=== PATIENT | female | born 1985 | race Caucasian/White ===

== ENCOUNTER 2016-10-13 11:38 | Observation (INO) | payer OTHER ==
[2016-10-13 11:40] VITALS: BMI 29.4
[2016-10-13] MEDS ORDERED: Sodium Chloride 0.9% 1,000 ML IV STA (12:05)
--- NOTE | 2016-10-13 12:16 | ED PDOC ---
Arrival/HPI - General Chief Complaint: Abdominal Pain Time Seen by Provider: 10/13/16 11:50 Historian: Patient, Corporate Planner (Lora Richardson) - History of Present Illness Narrative History of Present Illness (Text): 10/13/16 12:00 Brigitte Easton is a 31 year old patient, who presents to the Emergency department complaining of right lower quadrant abdominal pain that began two days ago. Patient notes feeling nauseated, having chills and dysuria since her abdominal pain began. She states that her last menstrual period was on . Patient denies chest pain, shortness of breath, headache, fever, cough, vomiting, diarrhea, changes in bowel habits, hematuria, frequency, flank pain, or other complaints. PMD: None Time/Duration: Other (2 days ago) Symptom Onset: Sudden Symptom Course: Unchanged Modifying Factors (Text): None Context: Home Associated Symptoms (Text): nausea, chills, and dysuria Past Medical History - Provider Review Nursing Documentation Reviewed: Yes - Infectious Disease Hx of Infectious Diseases: None - Past Medical History Past Medical History: No Previous - Musculoskeletal/Rheumatological Hx Falls: No - Psychiatric Hx Depression: No Hx Emotional Abuse: No Hx Physical Abuse: No Hx Substance Use: No - Surgical History Hx Section: Yes (3) Hx Tubal Ligation: Yes - Anesthesia Hx Anesthesia Reactions: No Hx Malignant Hyperthermia: No - Suicidal Assessment Feels Threatened In Home Enviroment: No Family/Social History - Physician Review Nursing Documentation Reviewed: Yes Family/Social History: Unknown Family HX Smoking Status: Never Smoked Hx Alcohol Use: No Hx Substance Use: No Hx Substance Use Treatment: No Allergies/Home Meds Allergies/Adverse Reactions: Allergies No Known Allergies Allergy (Verified 10/13/16 13:33) Review of Systems - Review of Systems Constitutional: Normal. absent: Fevers Eyes: Normal. absent: Vision Changes ENT: Normal Respiratory: Normal. absent: SOB, Cough Cardiovascular: Normal. absent: Chest Pain Gastrointestinal: Abdominal Pain (RLQ), Nausea. absent: Diarrhea Genitourinary Female: Dysuria. absent: Frequency Musculoskeletal: absent: Back Pain Skin: Normal Neurological: Normal Endocrine: Normal Hemo/Lymphatic: Normal Psychiatric: Normal Physical Exam Vital Signs Reviewed: Yes Vital Signs Temp Pulse Resp BP Pulse Ox 10/13/16 14:00 66 18 103/69 97 10/13/16 12:47 68 18 101/67 97 10/13/16 12:26 98.6 F 10/13/16 11:38 98.8 F 75 16 99/64 L 97 Temperature: Afebrile Blood Pressure: Hypotensive Pulse: Regular Respiratory Rate: Normal Appearance: Positive for: Well-Appearing, Non-Toxic, Comfortable Pain Distress: None Mental Status: Positive for: Alert and Oriented X 3 - Systems Exam Head: Present: Atraumatic, Normocephalic Pupils: Present: PERRL Conjunctiva: Present: Normal Mouth: Present: Moist Mucous Membranes Pharnyx: Present: Normal. No: ERYTHEMA, EXUDATE Neck: Present: Normal Range of Motion Respiratory/Chest: Present: Clear to Auscultation, Good Air Exchange. No: Respiratory Distress, Accessory Muscle Use Cardiovascular: Present: Regular Rate and Rhythm, Normal S1, S2. No: Murmurs Abdomen: Present: Tenderness (tender on palpation on RLQ), Normal Bowel Sounds. No: Distention, Peritoneal Signs Upper Extremity: Present: Normal Inspection. No: Cyanosis, Edema Lower Extremity: Present: Normal Inspection. No: Edema Neurological: Present: GCS=15, CN II-XII Intact, Speech Normal Skin: Present: Warm, Dry, Normal Color. No: Rashes Psychiatric: Present: Alert, Oriented x 3, Normal Insight, Normal Concentration Medical Decision Making ED Course and Treatment: 10/13/16 12:00 Impression: 31 year old female with RLQ abdominal pain. Differential Diagnosis included but are not limited to: appendicitis vs. ovarian cyst vs. UTI Plan: -- CAT scan abdomen and pelvis with IV contrast -- Urinalysis -- Labs -- Pepcid, Zofran, Sodiun Chloride -- Reassess and disposition - Lab Interpretations Lab Results: Lab Results 10/13/16 11:47: Urine HCG, Qual Negative 10/13/16 11:47: Urine Color Light yellow, Urine Appearance Clear, Urine pH 6.5, Ur Specific [place] <= 1.005, Urine Protein Negative, Urine Glucose (UA) Negative, Urine Ketones Negative, Urine Blood Negative, Urine Nitrate Negative, Urine Bilirubin Negative, Urine Urobilinogen 0.2, Ur Leukocyte Esterase Negative I have reviewed the lab results: Yes - Medication Orders Current Medication Orders: Discontinued Medications Famotidine (Pepcid) 20 mg IVP STAT STA Stop: 10/13/16 12:05 Last Admin: 10/13/16 12:49 Dose: 20 mg Sodium Chloride (Sodium Chloride 0.9%) 1,000 mls @ 999 mls/hr IV .Q1H1M STA Stop: 10/13/16 13:05 Last Admin: 10/13/16 12:49 Dose: 999 mls/hr Iohexol (Omnipaque 240 (50 Ml)) Confirm Administered Dose 50 ml .ROUTE .STK-MED ONE Stop: 10/13/16 12:19 Ketorolac Tromethamine (Toradol) 30 mg IVP STAT STA Stop: 10/13/16 14:10 Last Admin: 10/13/16 14:58 Dose: 30 mg Ondansetron HCl (Zofran Inj) 4 mg IVP STAT STA Stop: 10/13/16 12:05 Last Admin: 10/13/16 12:49 Dose: 4 mg ED OBSERVATION Discharge: Yes Date of observation admission: 10/13/16 Time of observation admission: 12:00 - Observation admission statement Patient is being placed in observation because:: Patient is being observed for right lower quadrant abdominal pain that began 2 days ago. - Goals of Observation Goals of observation are:: Patient will be monitored to treat symptoms. - Progress Note Progress Note: 10/13/16 12:00 Patient with RLQ pain will obtain CAT scan abdomen and pelvis with IV contrast, Urinalysis, Labs, and Pepcid, Zofran, Sodiun Chloride 10/13/16 Patient reports pain is unchanged. Patient will be given Toradol. 10/13/16 15:15 CT Abdomen and Pelvis with contrast: Creator : Richard Marvin MD FINDINGS: LOWER THORAX: Unremarkable. LIVER: Unremarkable. No gross lesion or ductal dilatation. GALLBLADDER AND BILE DUCTS: Unremarkable. PANCREAS: Unremarkable. No gross lesion or ductal dilatation. SPLEEN: Unremarkable. ADRENALS: Unremarkable. No mass. KIDNEYS AND URETERS: Unremarkable. No hydronephrosis. No solid mass. VASCULATURE: Unremarkable. No aortic aneurysm. BOWEL: Unremarkable. No obstruction. No gross mural thickening. APPENDIX: Normal appendix. PERITONEUM: Unremarkable. No free fluid. No free air. LYMPH NODES: Unremarkable. No enlarged lymph nodes. BLADDER: Unremarkable. REPRODUCTIVE: There is a thick-walled rim enhancing right ovarian cyst consistent with a recent cyst rupture. Coronal image 52. There is fluid in the endometrial canal BONES: No acute fracture. OTHER FINDINGS: None. IMPRESSION: Normal appendix. Thick-walled rim enhancing right ovarian cyst consistent with recent cyst rupture. There is no fluid in the cul-de-sac. 10/13/16 16:00 On re-evaluation, patient feels better and is in no acute distress. I have discussed the results and plan with the patient, who expresses understanding. Patient in agreement with plan to be discharged home. Patient is stable for discharge. Patient was instructed to follow up with physician or return if symptoms worsen or new concerning symptoms arise. - Scribe Statement The provider has reviewed the documentation as recorded by the Scribe 10/13/2016 Lora Richardson Provider Scribe Attestation: All medical record entries made by the Scribe were at my direction and personally dictated by me. I have reviewed the chart and agree that the record accurately reflects my personal performance of the history, physical exam, medical decision making, and the department course for this patient. I have also personally directed, reviewed, and agree with the discharge instructions and disposition. Disposition/Present on Arrival - Present on Arrival Any Indicators Present on Arrival: No History of DVT/PE: No History of Uncontrolled Diabetes: No Urinary Catheter: No History of Decub. Ulcer: No History Surgical Site Infection Following: None - Disposition Have Diagnosis and Disposition been Completed?: Yes Diagnosis: Ruptured ovarian cyst Disposition Time: 12:00 Patient Plan: Discharge Condition: GOOD
[2016-10-13] MEDS ORDERED: Iohexol 240 (50 ml) ONE (12:18)
[2016-10-13 12:26] VITALS: TEMP 98.6
[2016-10-13 12:33] LABS: PH,URINE 6.5 (4.7-8.0); URINE BILIRUBIN NEGATIVE (NEGATIVE); URINE BLOOD NEGATIVE (NEGATIVE); URINE GLUCOSE (UA) NEGATIVE (NEGATIVE); URINE LEUKOCYTE ESTERASE NEGATIVE Leu/uL (NEGATIVE); URINE NITRATE NEGATIVE (NEGATIVE); URINE PROTEIN NEGATIVE mg/dL (<30 mg/dL); URINE UROBILINOGEN 0.2 E.U./dL (<1 E.U./dL)
[2016-10-13 12:34] LABS: URINE APPEARANCE CLEAR (CLEAR); URINE COLOR LIGHT YELLOW (YELLOW)
[2016-10-13 12:40] LABS: BASO # 0.02 K/mm3 (0.0-2.0); BASO % 0.3 % (0.0-3.0); EOS # 0.1 (0.0-0.7); EOS % 1.8 % (1.5-5.0); GRAN # 4.59 (1.4-6.5); GRAN % 63.2 % (50.0-68.0); HEMOGLOBIN 11.6 gm/dL (12.0-16.0); LYMPH # 2.1 (1.2-3.4); LYMPH % 28.8 % (22.0-35.0); MEAN CELL VOLUME 83.1 fL (80.0-105.0); MEAN CORPUSCULAR HEMOGLOBIN 26.9 pg (25.0-35.0); MEAN CORPUSCULAR HGB CONC 32.4 g/dl (31.0-37.0); MEAN PLATELET VOLUME 10.7 fl (7.0-11.0); MONO # 0.4 (0.1-0.6); MONO % 5.9 % (1.0-6.0); PLATELET COUNT 227 10^3/uL (120.0-450.0); RBC 4.31 10^6/uL (3.5-6.1); WHITE BLOOD COUNT 7.3 10^3/ul (4.5-11.0)
[2016-10-13 12:48] VITALS: RESP 18
[2016-10-13 12:50] LABS: INR 1.06 (0.93-1.08); PARTIAL THROMBOPLASTIN TIME 29.6 Seconds (23.7-30.8); PROTHROMBIN TIME 11.4 Seconds (9.9-11.8)
[2016-10-13 12:52] LABS: ALB/GLOB RATIO 1.2 (1.1-1.8); ALBUMIN 4.1 g/dL (3.0-4.8); ALT/SGPT 23 U/L (7-56); AMYLASE 87 U/L (35-125); AST/SGOT 22 U/L (15-39); BLOOD UREA NITROGEN 13 mg/dL (7-21); CALCIUM 8.8 mg/dL (8.4-10.5); GFR AFRICAN-AMERICAN > 60; GFR NON-AFRICAN AMERICAN > 60; LIPASE 99 U/L (23-300)
[2016-10-13] MEDS ORDERED: Iohexol 350 MG/100 ML VIAL ONE (14:08)
--- NOTE | 2016-10-13 15:11 | CT ---
PROCEDURE: CT Abdomen and Pelvis with contrast HISTORY: RLQ pain - r/o appendicitis COMPARISON: None. TECHNIQUE: Contrast dose: 100 cc of Omni 350 Radiation dose: Total exam DLP = 504 mGy-cm. This CT exam was performed using one or more of the following dose reduction techniques: Automated exposure control, adjustment of the mA and/or kV according to patient size, and/or use of iterative reconstruction technique. FINDINGS: LOWER THORAX: Unremarkable. LIVER: Unremarkable. No gross lesion or ductal dilatation. GALLBLADDER AND BILE DUCTS: Unremarkable. PANCREAS: Unremarkable. No gross lesion or ductal dilatation. SPLEEN: Unremarkable. ADRENALS: Unremarkable. No mass. KIDNEYS AND URETERS: Unremarkable. No hydronephrosis. No solid mass. VASCULATURE: Unremarkable. No aortic aneurysm. BOWEL: Unremarkable. No obstruction. No gross mural thickening. APPENDIX: Normal appendix. PERITONEUM: Unremarkable. No free fluid. No free air. LYMPH NODES: Unremarkable. No enlarged lymph nodes. BLADDER: Unremarkable. REPRODUCTIVE: There is a thick-walled rim enhancing right ovarian cyst consistent with a recent cyst rupture. Coronal image 52. There is fluid in the endometrial canal BONES: No acute fracture. OTHER FINDINGS: None. IMPRESSION: Normal appendix. Thick-walled rim enhancing right ovarian cyst consistent with recent cyst rupture. There is no fluid in the cul-de-sac.
[2016-10-13 16:07] VITALS: BP 105/71; PULSE 65
[2016-10-13 16:41] VITALS: O2SAT 100
== END 2016-10-13 15:47 | disposition home or self-care (01) ==
LOC: ED 11:38 → EROBSV 12:00
PROVIDERS: ADMIT Emergency Medicine; ATTEND Emergency Medicine
DX: N83.201 Unspecified ovarian cyst, right side (principal)
CPT/HCPCS: 74177; 80053; 81003; 82150; 83690; 84703; 85025; 85610; 85730; 96374; 96375; 99284; G0378; J1885; J2405; J7040; Q9966; Q9967

== ENCOUNTER 2018-02-23 12:14 | Emergency (ER) | payer OTHER ==
[2018-02-23 12:21] VITALS: BMI 28.9
[2018-02-23 12:25] VITALS: RESP 18
[2018-02-23] MEDS ORDERED: Sodium Chloride 0.9% 1,000 ML IV STA (13:16)
[2018-02-23 13:42] LABS: BASO # 0.03 K/mm3 (0.0-2.0); BASO % 0.3 % (0.0-3.0); GRAN # 7.34 (1.4-6.5); GRAN % 77.4 % (50.0-68.0); HEMOGLOBIN 13.1 g/dL (12.0-16.0); LYMPH # 1.3 (1.2-3.4); LYMPH % 13.2 % (22.0-35.0); MEAN CELL VOLUME 82.3 fl (80.0-105.0); MEAN CORPUSCULAR HEMOGLOBIN 27.6 pg (25.0-35.0); MEAN CORPUSCULAR HGB CONC 33.6 g/dl (31.0-37.0); MEAN PLATELET VOLUME 11.1 fl (7.0-11.0); MONO # 0.9 (0.1-0.6); MONO % 9.1 % (1.0-6.0); RBC 4.74 10^6/uL (3.5-6.1); RED CELL DISTRIBUTION WIDTH 13.9 % (11.5-14.5); WHITE BLOOD COUNT 9.5 10^3/uL (4.5-11.0)
[2018-02-23 13:49] LABS: URINE APPEARANCE CLOUDY (CLEAR); URINE BILIRUBIN NEGATIVE (NEGATIVE); URINE BLOOD MODERATE (NEGATIVE); URINE COLOR YELLOW (YELLOW); URINE GLUCOSE (UA) NEGATIVE (NEGATIVE); URINE LEUKOCYTE ESTERASE LARGE Leu/uL (NEGATIVE); URINE PROTEIN NEGATIVE mg/dL (<30 mg/dL); URINE UROBILINOGEN 0.2 E.U./dL (<1 E.U./dL)
[2018-02-23 14:00] LABS: URINE WBC TNTC /hpf (0-6)
[2018-02-23 14:01] LABS: URINE BACTERIA MOD (NEG)
[2018-02-23 14:06] LABS: ALB/GLOB RATIO 1.2 (1.1-1.8); ALBUMIN 4.3 g/dL (3.0-4.8); ALT/SGPT 29 U/L (7-56); AMYLASE 68 U/L (35-125); AST/SGOT 25 U/L (14-36); BLOOD UREA NITROGEN 13 mg/dL (7-21); CALCIUM 8.7 mg/dL (8.4-10.5); GFR NON-AFRICAN AMERICAN > 60; LIPASE 78 U/L (23-300)
[2018-02-23] MEDS ORDERED: Iohexol 350 MG/100 ML VIAL ONE (15:10)
--- NOTE | 2018-02-23 16:20 | ED PDOC ---
Arrival/HPI - General Chief Complaint: Abdominal Pain Time Seen by Provider: 02/23/18 12:17 Historian: Patient - History of Present Illness Narrative History of Present Illness (Text): 02/23/18 16:15 32yr old female presents today with 1 week history of right sided abdominal pain. pt c/o nausea, no vomiting/diarrhea. pt c/o urinary frequency. no cp or sob. pt states pain is worse with eating. pt states she has occasional back pain. no dizziness or weakness. no medications taken at home. no vaginal bleeding or discharge. no other complaints. Time/Duration: 1 week Symptom Onset: Gradual Symptom Course: Unchanged Quality: Aching Severity Level: Mild Past Medical History - Provider Review Nursing Documentation Reviewed: Yes - Travel History Have you recently traveled outside [place] w/in the past 3 mons?: No - Infectious Disease Hx of Infectious Diseases: None - Past Medical History Past Medical History: No Previous - Musculoskeletal/Rheumatological Hx Falls: No - Psychiatric Hx Depression: No Hx Emotional Abuse: No Hx Physical Abuse: No Hx Substance Use: No - Surgical History Hx Section: Yes (3) Hx Tubal Ligation: Yes - Anesthesia Hx Anesthesia: Yes Hx Anesthesia Reactions: No Hx Malignant Hyperthermia: No - Suicidal Assessment Feels Threatened In Home Enviroment: No Family/Social History - Physician Review Nursing Documentation Reviewed: Yes Family/Social History: Unknown Family HX Smoking Status: Never Smoked Hx Alcohol Use: No Hx Substance Use: No Hx Substance Use Treatment: No Allergies/Home Meds Allergies/Adverse Reactions: Allergies No Known Allergies Allergy (Verified 10/13/16 13:33) Review of Systems - Review of Systems Constitutional: absent: Fatigue Respiratory: absent: SOB, Cough Cardiovascular: Syncope. absent: Chest Pain, Palpitations Gastrointestinal: Nausea. absent: Constipation, Diarrhea, Vomiting Genitourinary Female: Dysuria, Frequency. absent: Hematuria Musculoskeletal: Back Pain. absent: Arthralgias, Neck Pain Skin: absent: Rash Neurological: Headache. absent: Dizziness Psychiatric: absent: Anxiety, Depression Physical Exam Vital Signs Reviewed: Yes Vital Signs Temp Pulse Resp BP Pulse Ox 02/23/18 16:00 86 18 111/70 98 02/23/18 14:24 94 H 18 113/74 98 02/23/18 12:24 99.7 F H 100 H 18 111/70 98 Temperature: Afebrile Blood Pressure: Normal Pulse: Tachycardic Respiratory Rate: Normal Appearance: Positive for: Well-Appearing, Non-Toxic, Comfortable Pain Distress: None Mental Status: Positive for: Alert and Oriented X 3 - Systems Exam Head: Present: Atraumatic Mouth: Present: Moist Mucous Membranes Neck: Present: Normal Range of Motion Respiratory/Chest: Present: Clear to Auscultation, Good Air Exchange. No: Respiratory Distress, Accessory Muscle Use Cardiovascular: Present: Regular Rate and Rhythm, Normal S1, S2. No: Murmurs Abdomen: Present: Tenderness (rlq tenderness). No: Distention, Peritoneal Signs, Rebound, Guarding Back: Present: Normal Inspection. No: CVA Tenderness, Midline Tenderness, Paraspinal Tenderness Upper Extremity: Present: Normal ROM Lower Extremity: Present: Normal ROM Neurological: Present: GCS=15, Speech Normal Skin: Present: Warm, Dry, Normal Color. No: Rashes Psychiatric: Present: Alert, Oriented x 3 Medical Decision Making ED Course and Treatment: 02/23/18 16:17 Patient is nontoxic well appearing with stable vital signs presenting with 1 week hx of lower abdominal pain CBC wnl CMP wnl Lipase wnl Urinalysis + leukocytes, + TNTC wbcs CAT scan: FINDINGS: LOWER THORAX: Unremarkable. LIVER: Unremarkable. No gross lesion or ductal dilatation. GALLBLADDER AND BILE DUCTS: Unremarkable. PANCREAS: Unremarkable. No gross lesion or ductal dilatation. SPLEEN: Unremarkable. ADRENALS: Unremarkable. No mass. KIDNEYS AND URETERS: There is an 18 x 24 mm area of hypodensity in the right kidney that extends to the cortical surface. This does not measure fluid density and does not represent a cyst. This was not present on the previous study. This could represent an area of pyelonephritis or renal infarct. Clinical correlation is suggested VASCULATURE: Unremarkable. No aortic aneurysm. No aortic atherosclerotic calcification or mural plaque present. BOWEL: Unremarkable. No obstruction. No gross mural thickening. APPENDIX: Normal appendix. PERITONEUM: Unremarkable. No free fluid. No free air. LYMPH NODES: Unremarkable. No enlarged lymph nodes. BLADDER: Unremarkable. REPRODUCTIVE: Unremarkable. BONES: No acute fracture. OTHER FINDINGS: None. IMPRESSION: There is an 18 x 24 mm area of hypodensity in the right kidney that extends to the cortical surface. This does not measure fluid density and does not represent a cyst. This was not present on the previous study. This could represent an area of pyelonephritis or renal infarct. Clinical correlation is suggested Patient reassessment: pt is non toxic well appearing; no distress. feeling better after medications. Discussed all results with patient in depth. advised abx as prescribed and f/u with PMD within the next 2 days. advised immediate return if symptoms worsen, persist or if new symptoms develop. Patient verbalizes understanding of discharge instructions and need for immediate followup. all aspects of this case were discussed the attending of record. Impression: pyelonephritis Motrin every 6 hours as needed for pain Keflex; 1 tablet twice daily x 10 Follow up with primary care physician within the next 2 days increase fluids Return immediately if symptoms worsen persist or if new symptoms develop: High fevers, increasing pain, vomiting, diarrhea or any other concerning symptoms develop Reassessment Condition: Re-examined, Improved - Lab Interpretations Lab Results: 02/23/18 13:30 02/23/18 13:50 Lab Results 02/23/18 13:50: Sodium 136, Potassium 3.6, Chloride 102, Carbon Dioxide 26, Anion Gap 12, BUN 13, Creatinine 0.6 L, Est GFR ( Amer) > 60, Est GFR (Non-Af Amer) > 60, Random Glucose 100, Calcium 8.7, Total Bilirubin 0.4, AST 25, ALT 29, Alkaline Phosphatase 76, Total Protein 8.0, Albumin 4.3, Globulin 3.6, Albumin/Globulin Ratio 1.2, Amylase 68, Lipase 78 02/23/18 13:30: Urine Color Yellow, Urine Appearance Cloudy, Urine pH 6.0, Ur Specific [place] 1.015, Urine Protein Negative, Urine Glucose (UA) Negative, Urine Ketones Negative, Urine Blood Moderate H, Urine Nitrate Negative, Urine Bilirubin Negative, Urine Urobilinogen 0.2, Ur Leukocyte Esterase Large H, Urine RBC 2 - 5, Urine WBC Tntc, Ur Epithelial Cells 1 - 3, Urine Bacteria Mod 02/23/18 13:30: WBC 9.5, RBC 4.74, Hgb 13.1, Hct 39.0, MCV 82.3, MCH 27.6, MCHC 33.6, RDW 13.9, Plt Count 285, MPV 11.1 H, Gran % 77.4 H, Lymph % (Auto) 13.2 L, [place] % (Auto) 9.1 H, Eos % (Auto) 0.0 L, Baso % (Auto) 0.3, Gran # 7.34 H, Lymph # (Auto) 1.3, [place] # (Auto) 0.9 H, Eos # (Auto) 0.0, Baso # (Auto) 0.03 - RAD Interpretation Radiology Orders: 02/23/18 13:15 ABD & PELVIS IV CONTRAST ONLY [CT] Stat - Medication Orders Current Medication Orders: Discontinued Medications Sodium Chloride (Sodium Chloride 0.9%) 1,000 mls @ 999 mls/hr IV .Q1H1M STA Stop: 02/23/18 14:16 Last Admin: 02/23/18 13:44 Dose: 999 mls/hr eMAR Start Stop Document 02/23/18 13:44 LA (Rec: 02/23/18 13:45 LA [id number]) Intravenous Solution Start Date 02/23/18 Start Time 13:45 End Date 02/23/18 End time 14:46 Total Infusion Time 61 Ketorolac Tromethamine (Toradol) 30 mg IVP STAT STA Stop: 02/23/18 14:05 Last Admin: 02/23/18 14:18 Dose: 30 mg [facility] Pain Assessment Document 02/23/18 14:18 LA (Rec: 02/23/18 14:19 LA [id number]) Pain Reassessment Is this a pain reassessment? No Sleep Is patient sleeping during reassessment? No Presence of Pain Presence of Pain Yes Pain Scale Used Protocol: PSCALES Pain Scale Used Numeric Location Left, Right or Bilateral Right Upper or Lower Lower Pain Location Body Site Abdomen Description Intensity of Pain at present 6 IVP Administration Document 02/23/18 14:18 LA (Rec: 02/23/18 14:19 LA [id number]) Charges for Administration # of IVP Administrations 1 Re-Assess: MAR Pain Assessment Document 02/23/18 15:18 LA (Rec: 02/23/18 15:26 LA [id number]) Pain Reassessment Is this a pain reassessment? Yes Sleep Is patient sleeping during reassessment? Yes Disposition/Present on Arrival - Present on Arrival Any Indicators Present on Arrival: No History of DVT/PE: No History of Uncontrolled Diabetes: No Urinary Catheter: No History of Decub. Ulcer: No History Surgical Site Infection Following: None - Disposition Have Diagnosis and Disposition been Completed?: Yes Diagnosis: Pyelonephritis Disposition: HOME/ ROUTINE Disposition Time: 15:20 Patient Plan: Discharge Patient Problems: Current Active Problems Problem Status Onset Urinary tract infection Acute Condition: GOOD Discharge Instructions (ExitCare): Kidney Infection (DC) Additional Instructions: Motrin every 6 hours as needed for pain Keflex; 1 tablet twice daily x 10 Follow up with primary care physician within the next 2 days increase fluids Return immediately if symptoms worsen persist or if new symptoms develop: High fevers, increasing pain, vomiting, diarrhea or any other concerning symptoms develop Prescriptions: Cephalexin [Keflex] 500 mg PO BID #20 capsule Ibuprofen [Motrin] 600 mg PO Q6H PRN #20 tab PRN Reason: pain/fever reduction Referrals: Princess Miller MD [Medical Doctor] - Follow up with primary Kaz Castañeda MD [Staff Provider] - Follow up with primary [facility] [Outside] - Follow up with primary Forms: [employer] (E[place]ian)
--- NOTE | 2018-02-23 16:31 | CT ---
Date of service: 02/23/2018 PROCEDURE: CT Abdomen and Pelvis with contrast HISTORY: abd pain COMPARISON: CT 10/13/2016 TECHNIQUE: Contrast dose: 100 cc of Omni 350 Radiation dose: Total exam DLP = 599.97 mGy-cm. This CT exam was performed using one or more of the following dose reduction techniques: Automated exposure control, adjustment of the mA and/or kV according to patient size, and/or use of iterative reconstruction technique. FINDINGS: LOWER THORAX: Unremarkable. LIVER: Unremarkable. No gross lesion or ductal dilatation. GALLBLADDER AND BILE DUCTS: Unremarkable. PANCREAS: Unremarkable. No gross lesion or ductal dilatation. SPLEEN: Unremarkable. ADRENALS: Unremarkable. No mass. KIDNEYS AND URETERS: There is an 18 x 24 mm area of hypodensity in the right kidney that extends to the cortical surface. This does not measure fluid density and does not represent a cyst. This was not present on the previous study. This could represent an area of pyelonephritis or renal infarct. Clinical correlation is suggested VASCULATURE: Unremarkable. No aortic aneurysm. No aortic atherosclerotic calcification or mural plaque present. BOWEL: Unremarkable. No obstruction. No gross mural thickening. APPENDIX: Normal appendix. PERITONEUM: Unremarkable. No free fluid. No free air. LYMPH NODES: Unremarkable. No enlarged lymph nodes. BLADDER: Unremarkable. REPRODUCTIVE: Unremarkable. BONES: No acute fracture. OTHER FINDINGS: None. IMPRESSION: There is an 18 x 24 mm area of hypodensity in the right kidney that extends to the cortical surface. This does not measure fluid density and does not represent a cyst. This was not present on the previous study. This could represent an area of pyelonephritis or renal infarct. Clinical correlation is suggested
[2018-02-23] MEDS ORDERED: cefTRIAXone 1 gm 1 GM/100 ML BAG IVPB STA (16:32)
[2018-02-23 17:04] VITALS: BP 108/69; PULSE 90; TEMP 98.3; O2SAT 96
== END 2018-02-23 17:29 | disposition home or self-care (01) ==
LOC: ED 12:14
DX: N12 Tubulo-interstitial nephritis, not specified as acute or chronic (principal); Z98.51 Tubal ligation status
CPT/HCPCS: 74177; 80053; 81001; 82150; 83690; 85025; 87040; 87086; 96361; 96365; 96375; 99284; J0696; J1885; J7030; Q9967